=== PATIENT | female | born 1955 | race Caucasian/White ===

== ENCOUNTER 2017-12-22 21:00 | Emergency (ER) | payer BC ==
[2017-12-22] MEDS: Lidocaine 1% 20 ML MDV ONE (21:31)
[2017-12-22] MEDS: Lidocaine 1% 20 ML MDV INJECT ONE (21:38)
[2017-12-22] MEDS: Bacitracin/Neomycin/Polymyxin B Oint 0.9 GM U/D Packet TOP ONE (21:38)
[2017-12-22] MEDS: Lidocaine 1% 30 ML SDV INJECT STA (21:39)
--- NOTE | 2017-12-22 21:51 | EDM.PDOC ---
ED HPI GENERAL MEDICAL PROBLEM - General Chief Complaint: Laceration Stated Complaint: LACERATION Time Seen by Provider: 12/22/17 21:08 Source of Information: Reports: Patient History Limitations: Reports: No Limitations - History of Present Illness INITIAL COMMENTS - FREE TEXT/NARRATIVE: Inna is a 62 yr old female who presents to the ER via private vehicle and ambulatory with concerns of a laceration to her left platt. She states she ended up cutting her leg on an edge of a T-post that is used for chickens. She states her Tetanus is up to date, last given in 2015. She states the T-post was clean. - Related Data Allergies Allergy/AdvReac Type Severity Reaction Status Date / Time Penicillins Allergy Other Verified 12/22/17 21:14 Home Meds: Home Meds Ibuprofen 600 mg PO Q6H PRN 12/22/17 [History] Past Medical History - Past Surgical History Female Surgical History: Reports: Hysterectomy, Other (See Below) Other Female Surgeries/Procedures: LUMPECTOMY Social & Family History - Tobacco Use Smoking Status *Q: Never Smoker - Caffeine Use Caffeine Use: Reports: None ED ROS GENERAL - Review of Systems Review Of Systems: ROS reveals no pertinent complaints other than HPI. ED EXAM, SKIN/RASH Exam: See Below Exam Limited By: No Limitations General Appearance: Alert, No Apparent Distress Extremities: Normal Inspection (Normal strength to ankle. No deficits noted besides laceration. ), Normal Range of Motion (of left ankle. ). No: Increased Warmth, Redness Psychiatric: Normal Affect, Normal Mood Skin: Wound/Incision (4.5cm linear laceration to left anterior platt. Does not appear to be contaminated. No active bleeding. ) ED SKIN PROCEDURES - Laceration/Wound Repair Left Lower Anterior Medial Leg Lac/Wound length In cm: 4.5 Appearance: Superficial, Subcutaneous, Linear, Clean Distal NVT: Neuro & Vascular Intact, No Tendon Injury Anesthetic Type: Local Local Anesthesia - Lidocaine (Xylocaine): 1% Plain Local Anesthetic Volume: Other (10) Skin Prep: Chlorhexidine (Hibiciens), Providone-Iodine (Betadine), Sterile Drape Exploration/Debridement/Repair: Wound Explored, In a Bloodless Field, Explored to Base, No Foreign Material Found Closed with: Sutures Suture Size: 4-0 # of Sutures: 9 Suture Type: Prolene, Interrupted Sterile Dressing Applied: Nurse Tetanus Status Addressed: Yes Complications: No Course - Vital Signs Last Recorded V/S: Last Vital Signs Temp 96.3 F 12/22/17 21:00 Pulse 73 12/22/17 21:00 Resp 18 12/22/17 21:00 BP 132/94 H 12/22/17 21:00 Pulse Ox 98 12/22/17 21:00 - Orders/Labs/Meds Meds: Medications Discontinued Medications Generic Name Dose Route Start Last Admin Trade Name Kong PRN Reason Stop Dose Admin Lidocaine HCl Confirm 12/22/17 20:55 12/22/17 21:31 Xylocaine 1% Administered 12/22/17 20:56 Not Given Dose 20 ml .ROUTE .STK-MED ONE Lidocaine HCl 10 ml 12/22/17 21:30 12/22/17 21:39 Xylocaine-Mpf 1% INJECT 12/22/17 21:31 Not Given NOW STA Lidocaine HCl 20 ml 12/22/17 21:37 12/22/17 21:38 Xylocaine 1% INJECT 12/22/17 21:38 20 ml ONETIME ONE Administration Neomycin/Polymyxin/Bacitracin 1 each 12/22/17 21:19 12/22/17 21:38 Triple Antibiotic Oint TOP 12/22/17 21:20 1 each ONETIME ONE Administration Departure - Departure Time of Disposition: 21:51 Disposition: Home, Self-Care 01 Clinical Impression: Laceration of lower leg without complication Qualifiers: Encounter type: initial encounter Laterality: left Qualified Code(s): S81.812A - Laceration without foreign body, left lower leg, initial encounter - Discharge Information Instructions: Wound Care, Adult, Laceration Care, Adult, [id number] Referrals: PCP,None [Primary Care Provider] - Additional Instructions: 1) Keep wound clean and dry for initial 48 hours. 2) Triple antibiotic ointment as discussed, twice a day as needed. 3) may clean with mild soap and water, do not soak leg 4) Tylenol and ibuprofen for discomfort, as directed on bottle. 5) Watch for signs of infection (redness, warmth, streaking, drainage, etc...). 6) Return to ER if any concerns. 7) Wound care hand out given as well. - Problem List & Annotations (1) Laceration of lower leg without complication SNOMED Code(s): 530224152 Code(s): S81.819A - LACERATION WITHOUT FOREIGN BODY, UNSP LOWER LEG, INIT ENCNTR Status: Acute Current Visit: Yes Qualifiers: Encounter type: initial encounter Laterality: left Qualified Code(s): S81.812A - Laceration without foreign body, left lower leg, initial encounter - Problem List Review Problem List Initiated/Reviewed/Updated: Yes - Assessment/Plan Plan: Wound closed without complication. See additional instructions and procedure note.
== END 2017-12-22 21:50 | disposition home or self-care (01) ==
LOC: CC.ED 21:00
DX: S81.812A Laceration without foreign body, left lower leg, initial encounter (principal); Z88.0 Allergy status to penicillin; W22.8XXA Striking against or struck by other objects, initial encounter
CPT/HCPCS: 12002; 96372; 99282